=== PATIENT | female | born 2000 | race Caucasian/White ===

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

== ENCOUNTER → 2022-01-05 | Outpatient (CLI) | payer BC, MEDICAID ==
[~2022-01-05] MED LIST changes: +ACET-93 PO; +FERR325T18 PO; +IBUP-844 PO
--- NOTE | 2022-01-05 16:16 | Diagnostic Imaging Report ---
PROCEDURE: Pelvic comp/transvaginal sonogram. TECHNIQUE: Complete transabdominal and transvaginal pelvic ultrasound was performed. In addition, limited pelvic Doppler was performed. INDICATION: Pelvic pain and bleeding. FINDINGS: Uterus is anteverted measuring 7.5 x 3.9 x 5.1 cm. Endometrium is 5 mm in thickness. No myometrial mass is detected. Right ovary measures 3.1 x 1.6 x 2.9 cm and the left ovary measures 3.4 x 2.0 x 2.8 cm. Left ovary does contain a 2.7 cm cyst. There is blood flow to both ovaries. No adnexal mass or free fluid is seen. IMPRESSION: 2.7 cm left ovarian cyst. The study is otherwise unremarkable. Dictated by: Dictated on workstation # [id number]
== END ==
LOC: RAD 12:08
PROVIDERS: ATTEND Nurse Practitioner Women's Health
DX: N83.202 Unspecified ovarian cyst, left side (principal)
CPT/HCPCS: 76830; 76856

== ENCOUNTER → 2022-07-10 | Outpatient (CLI) | payer BC, MEDICAID ==
--- NOTE | 2022-07-10 15:56 | Diagnostic Imaging Report ---
PROCEDURE: US Non-ob pelvis comp/trans. INDICATION: 22-year-old female, left lower quadrant pain TECHNIQUE: Multiple real time obrien scale sonographic images were obtained of the pelvis transabdominally and endovaginally. CORRELATION STUDY: 01/05/2022 FINDINGS: UTERUS: 8.1 x 5.1 x 5.7 cm. The uterus appearing unremarkable. ENDOMETRIUM: 0.8 cm. The endometrium is of normal thickness. RIGHT OVARY: 3.1 x 1.8 x 2.4 cm. LEFT OVARY: 2.5 x 1.8 x 1.9 cm. Multiple small cysts and/or follicles of both ovaries. Slightly more dominant anechoic cystic mass lateral and inferior to right ovary 2.4 x 1.5 x 1.6 cm, perhaps paraovarian cyst. Ovarian blood flow is present. No significant free pelvic fluid. IMPRESSION: 1. Probable right paraovarian cyst. Otherwise unremarkable appearing pelvic ultrasound. Dictated by: Dictated on workstation # [id number]
== END ==
LOC: RAD 12:15
PROVIDERS: ATTEND Nurse Practitioner Women's Health
DX: R10.32 Left lower quadrant pain (principal)
CPT/HCPCS: 76830; 76856